=== PATIENT | female | born 1960 | race Caucasian/White ===

== ENCOUNTER 2017-01-22 03:38 | Observation (INO) | payer BC, OTHER ==
[~2017-01-22] VITALS: Ht 162.6 cm; Wt 86.5 kg
[~2017-01-22 03:38] MED LIST: STELARA INJ; VENL150T33 PO; [UNRECOGNIZED DRUG - CODE] PO; [UNRECOGNIZED DRUG - OTHER]
[2017-01-22 04:02] LABS: BASO % 0.2 %; BASO ABS # 0.01 K/uL (0-0.2); COMPLETE YES; EOS % 6.1 %; HEMATOCRIT 38.8 % (37-47); IG% 0.2 %; LYMPH % 29.1 %; LYMPH ABS # 1.63 K/uL (1.2-3.4); MEAN CELL VOLUME 95.1 fL (80-100); MEAN CORPUSCULAR HEMOGLOBIN 31.9 pg (25-34); MEAN CORPUSCULAR HGB CONC 33.5 g/dl (32-36); MEAN PLATELET VOLUME 9.5 fL (7.4-10.4); MONO % 10.3 %; NEUT % 54.1 %; PLATELET COUNT 267 K/uL (130-400); RED BLOOD COUNT 4.08 M/uL (4.2-5.4); WHITE BLOOD COUNT 5.61 K/uL (4.8-10.8)
[2017-01-22 04:12] LABS: ISTAT CREATININE 0.5 mg/dl (0.6-1.3); ISTAT HEMOGLOBIN 13.9 g/dl (12.0-16.0); ISTAT IONIZED CALCIUM 1.13 mmol/l (1.12-1.32)
[2017-01-22 04:18] LABS: POINT OF CARE TROPONIN I < 0.030 ng/ml (0-0.045)
[2017-01-22] MEDS ORDERED: NITROGLYCERIN 0.4 MG SL PER TAB CHARGE SL STA (04:19)
[2017-01-22] MEDS ORDERED: ASPIRIN 81 MG CHEW PO STA ×2 (04:19→04:30)
--- NOTE | 2017-01-22 04:23 | EMERGENCY ROOM VISIT NOTE ---
History First contact with patient: 03:47 Chief Complaint: CARDIAC ASSESSMENT Stated Complaint: CHEST PAIN SINCE SAT, TROUBLE CATCHING BREATH Nursing Triage Summary: patient c/o increased chest pain/discomfort since sunday. patient states it hurts to take a deep breath. patient also states chest is tender to touch . History of Present Illness The patient is a 56 year old female who presents to the Emergency Room with complaints of left sided chest pain that is worse with deep inspiration for the past day that is steadily getting worse currently 9 out of 10. Palpation makes it worse and nothing makes it better. Patient states the pain does not radiate. Patient denies recent travel, back pain, jaw pain, neck pain, arm pain , diaphoresis, nausea, vomiting, diarrhea, abdominal pain, leg pain or swelling. Her mother had heart disease in her 60s. No recent stress test or echo. She had gastric bypass greater than 10 years ago. No alcohol use. She is a former smoker. Patient denies having high blood pressure, cholesterol or diabetes. No personal history of blood clots or heart disease. No family history of blood clots. No known active cancer or hormone replacement. Patient states she takes diltiazem for PVCs. Review of Systems The patient was independently evaluated and assessed by Dr. MCFARLAND who agrees with the above findings and the following plan. Past Medical/Surgical History Medical Problems: (1) Chronic sinusitis, unspecified (2) Deviated Nasal Septum (3) Dyskinesia of esophagus (4) Obstructive sleep apnea (adult) (pediatric) Surgical Problems: (1) H/O gastric bypass PVCs Family History Diabetes mellitus MOTHER FH: Parkinson's disease FATHER Social History Smoking Status: Former Smoker Smokeless Tobacco Use: No Alcohol Use: none Drug Use: none Marital Status: Housing Status: lives with family Occupation Status: employed Current/Historical Medications Scheduled Diltiazem Hcl Coated Beads (Matzim La), 180 MG PO DAILY Venlafaxine Hcl (Venlafaxine Hcl Er), 1 TAB PO DAILY [Stelara], 45 MG INJ EVERY 12 WEEKS Miscellaneous Medications [Lumiday Herbal Sup] Physical Exam Vital Signs Date Time Temp Pulse Resp B/P (MAP) Pulse Ox O2 Delivery O2 Flow Rate FiO2 01/22/17 04:04 98 Room Air 01/22/17 04:04 98 Room Air 01/22/17 03:57 74 01/22/17 03:51 98 Room Air 01/22/17 03:42 36.8 74 20 173/93 96 Room Air Physical Exam VITALS: Vitals are noted on the nurse's note and reviewed by myself. Vital signs hypertensive GENERAL: Pleasant female and she is anxious appearing, in no acute distress, nondiaphoretic, well-developed well-nourished. SKIN: The skin was without rashes, erythema, edema, or bruising. There is no tenting of the skin. Capillary reflex less than 2 seconds. HEAD: Normocephalic atraumatic. EARS: External auditory canals clear, tympanic membranes pearly varghese without erythema or effusion bilaterally. EYES: Pupils equal round and reactive to light and accommodation. Conjunctivae without injection, sclerae without icterus. Extraocular movements intact. NOSE: Patent, turbinates without inflammation or discharge. MOUTH: Mucous membranes moist. Pharynx without erythema or exudate. Uvula midline. Airway patent. Tongue does not deviate. NECK: Supple without nuchal rigidity. No lymphadenopathy. No thyromegaly. Cervical spine is nontender. No JVD. HEART: Regular rate and rhythm left sided chest tender to palpation easily reproducing symptoms LUNGS: Clear to auscultation bilaterally without wheezes, rales or rhonchi. No dullness to percussion. No retractions or accessory muscle use. ABDOMEN: Positive bowel sounds x 4. Normal tympanic percussion. Soft, nontender, without masses or organomegaly. Severino sign negative. No guarding or rebound tenderness. MUSCULOSKELETAL: No muscle atrophy, erythema, or edema noted. NEURO: Patient was alert and oriented to person place and time. Normal sensation to light and sharp touch. No focal neurological deficits. Medical Decision & Procedures Laboratory Results 01/22/17 03:50 Red Blood Count 4.08, Mean Corpuscular Volume 95.1, Mean Corpuscular Hemoglobin 31.9, Mean Corpuscular Hemoglobin Concent 33.5, Mean Platelet Volume 9.5, Neutrophils (%) (Auto) 54.1, Lymphocytes (%) (Auto) 29.1, Monocytes (%) (Auto) 10.3, Eosinophils (%) (Auto) 6.1, Basophils (%) (Auto) 0.2, Neutrophils # (Auto ) 3.04, Lymphocytes # (Auto) 1.63, Monocytes # (Auto) 0.58, Eosinophils # (Auto ) 0.34, Basophils # (Auto) 0.01 Test 01/22/17 03:50 01/22/17 04:00 White Blood Count 5.61 K/uL (4.8-10.8) Red Blood Count 4.08 M/uL (4.2-5.4) Hemoglobin 13.0 g/dL (12.0-16.0) Hematocrit 38.8 % (37-47) Mean Corpuscular Volume 95.1 fL (80-100) Mean Corpuscular Hemoglobin 31.9 pg (25-34) Mean Corpuscular Hemoglobin Concent 33.5 g/dl (32-36) Platelet Count 267 K/uL (130-400) Mean Platelet Volume 9.5 fL (7.4-10.4) Neutrophils (%) (Auto) 54.1 % Lymphocytes (%) (Auto) 29.1 % Monocytes (%) (Auto) 10.3 % Eosinophils (%) (Auto) 6.1 % Basophils (%) (Auto) 0.2 % Neutrophils # (Auto) 3.04 K/uL (1.4-6.5) Lymphocytes # (Auto) 1.63 K/uL (1.2-3.4) Monocytes # (Auto) 0.58 K/uL (0.11-0.59) Eosinophils # (Auto) 0.34 K/uL (0-0.5) Basophils # (Auto) 0.01 K/uL (0-0.2) RDW Standard Deviation 48.4 fL (36.4-46.3) RDW Coefficient of Variation 13.9 % (11.5-14.5) Immature Granulocyte % (Auto) 0.2 % Immature Granulocyte # (Auto) 0.01 K/uL (0.00-0.02) Bedside Hemoglobin 13.9 g/dl (12.0-16.0) Bedside Hematocrit 41 % (37-47) Bedside D-Dimer 173 ng/mlFEU (0-450) Bedside Sodium 142 mEq/L (135-144) Bedside Potassium 3.8 mEq/L (3.3-5.0) Bedside Chloride 103 mEq/L (101-112) Bedside Total CO2 26 mEq/l (24-31) Anion Gap 18.0 mmol/L (16-25) Bedside Blood Urea Nitrogen 10 mg/dl (7-18) Bedside Creatinine 0.5 mg/dl (0.6-1.3) Bedside Glucose (other) 97 mg/dl (70-99) Bedside Ionized Calcium (Gabe) 1.13 mmol/l (1.12-1.32) Bedside Troponin I < 0.030 ng/ml (0-0.045) ED Course Prior records/ancillary studies reviewed. Triage Nursing notes reviewed. The patient's history was concerning for chest pain. Differential diagnosis: Etiologies such as cardiac ischemia, aortic dissection, pulmonary embolism, pneumonia, pneumothorax, musculoskeletal, infections, pericarditis, myocarditis , esophageal rupture, gastrointestinal, as well as others were entertained. Physical examination: As above. ER treatment provided: Aspirin (patient states she took 2 baby aspirin just prior to arrival), Nitro On reassessment the patient felt better. Diagnostic interpretation by me: The electrocardiogram was normal sinus, normal intervals, Q wave in lead 3, T wave inversion in lead 3, no other acute ST-T wave changes, rate of 72. EKG compared to prior EKG from February 2015 with no acute changes noted. Impression normal sinus rhythm with Q wave in lead 3 interpret by myself The labs revealed negative troponin. Negative d-dimer Imaging studies: Chest x-ray with no acute consolidation, pneumothorax or free air per my interpretation Consultation: A consultation was placed with the hospitalist, Dr. Friedman. The case was discussed and diagnostics were reviewed. The patient was evaluated in the ER for further treatment. Exam and history seem consistent with chest pain with family history of heart disease. Patient had unchanged EKG. She has a family history of heart disease. No recent cardiac testing. Patient had a negative d-dimer. No risk factors for PEs. Stable H&H. She will be evaluated by medicine for possible cardiac rule out. By the evaluation outlined above emergent etiologies such as aortic dissection , pulmonary embolism, pneumonia, pneumothorax, infections, pericarditis, myocarditis, gastrointestinal, as well as others were deemed relatively unlikely. The pt informed about the findings as listed above. All questions were answered and pleased with the treatment. Case reviewed with my attending Medical Decision As above Medication Reconcilliation Current Medication List: was personally reviewed by me Blood Pressure Screening Patient's blood pressure: Elevated blood pressure Blood pressure disposition: Elevated BP felt to be situational Impression Primary Impression: Precordial chest pain Departure Information Dispostion Being Evaluated By Hospitalist Condition GOOD Referrals Lian Alonzo M.D. (PCP) Patient Instructions My [facility]
[2017-01-22 04:33] LABS: BUN/CREATININE RATIO 22.6 (10-20); CALCIUM 8.7 mg/dl (8.5-10.1); CREATININE 0.46 mg/dl (0.60-1.20); POTASSIUM 3.7 mmol/L (3.5-5.1)
[2017-01-22] MEDS ORDERED: SECU1INJ INJ (04:34)
[2017-01-22] MEDS ORDERED: DILT180C PO (04:34)
[2017-01-22 04:35] LABS: MAGNESIUM 2.1 mg/dl (1.8-2.4)
[2017-01-22] MEDS ORDERED: MULT-506 PO (04:35)
[2017-01-22 04:48] LABS: PARTIAL THROMBOPLASTIN RATIO 1.1
[2017-01-22] MEDS ORDERED: MoRPHine SULFATE 4 MG/ML 1 ML CARP\\VIAL IV PRN (05:15)
[2017-01-22] MEDS ORDERED: TRAMADOL HCL 50 MG TAB PO PRN (05:15)
[2017-01-22] MEDS ORDERED: IBUPROFEN 200 MG TAB PO PRN (05:15)
[2017-01-22] MEDS ORDERED: LORAZEPAM 2 MG/ML 1 ML VIAL IV PRN (05:15)
[2017-01-22] MEDS ORDERED: ONDANSETRON INJ 2 MG/ML 2 ML VIAL IV PRN (05:15)
[2017-01-22] MEDS ORDERED: ACETAMINOPHEN 325 MG TAB PO PRN (05:15)
[2017-01-22] MEDS ORDERED: KETOROLAC TROMETHAMINE 15 MG/ML VIAL IV. PRN (05:15)
[2017-01-22] MEDS ORDERED: KETOROLAC TROMETHAMINE 30 MG/ML VIAL IV STA (05:16)
[2017-01-22 05:26] VITALS: BP 152/88; PULSE 68; TEMP 36.4; O2SAT 97
[2017-01-22] MEDS ORDERED: IV FLUIDS COMPLETED PRN (05:30)
[2017-01-22] MEDS ORDERED: LACTATED RINGER'S 1000ML 1,000 ML IV SCH (05:30)
[2017-01-22] MEDS ORDERED: KETOROLAC TROMETHAMINE 15 MG/ML VIAL IV. STA (05:35)
[2017-01-22 05:43] VITALS: BP 152/88; TEMP 36.4; O2SAT 97; Ht 162.6 cm; Wt 86.5 kg
--- NOTE | 2017-01-22 06:07 | HISTORY & PHYSICAL EXAMINATION ---
DATE OF ADMISSION: 01/22/2017 PRIMARY CARE PHYSICIAN: Dr. Alonzo. CHIEF COMPLAINT: Chest pain. HISTORY OF PRESENT ILLNESS: History obtained from patient and records. Medical history is significant for PSVT, hypertension, psoriatic arthritis, past tobacco abuse, mild sleep apnea (currently not requiring CPAP). Few days history of left-sided chest pain, pleuritic with some shortness, no cough symptoms. No fever, no chills. No trauma. No unusual exertion except for carrying some pumpkins. Patient sensing some rattling on the left side of the chest. Chest pain, worse with left upper extremity motion. Note of exertional shortness of breath symptoms in the last month. No relief with aspirin and nitroglycerin given at the ER. MEDICAL HISTORY: As above. Stress echo from February 2013 showed no inducible ischemia, EF 64%, trace LV dysfunction, trace MR. SURGERIES: She has had bariatric surgery, hysterectomy, appendectomy, oophorectomy, cholecystectomy, rhinoplasty, right inguinal node biopsy. HOME MEDICATIONS: Include diltiazem, cholecalciferol, Cosentyx, clobetasol, calcipotriene, multivitamins, Caltrate. ALLERGIES: No known drug allergies. FAMILY HISTORY: Family history of heart disease. PERSONAL AND SOCIAL HISTORY: Past tobacco abuse. Occasional alcoholic beverage intake. Retired longterm counselor. REVIEW OF SYSTEMS: As per HPI, all other ROS negative. PHYSICAL EXAMINATION: VITAL SIGNS: Blood pressure was noted to be 170/90, later 131/90, RR 22 T 37, O2 sats 98 on room air. GENERAL: Slightly anxious, no respiratory distress, obese. SKIN: Normal color, warm. HEENT: [place] palpebral conjuctivae. no ptosis, dry buccal mucosa. NECK: Supple. No tenderness. CHEST: Clear to auscultation. Anterior chest wall tenderness , L. CARDIOVASCULAR: Regular rate and rhythm. Palpable lower extremity pulses. ABDOMEN: Soft, nontender. EXTREMITIES: No edema, no tenderness. No gross deformity. NEUROLOGIC: Coherent. No gross focality. LABORATORY DATA: Hemoglobin was noted to be 13, hematocrit 38.8, white blood cell count 5.6, platelets noted to be 267. Sodium 141, potassium 3.7, chloride 106, CO2 27, BUN 11, creatinine 0.4, glucose was noted to be 94. Troponin 0.03. D-dimer normal. Chest x-ray as per my interpretation atelectasis. EKG as per my interpretation, rate 75, normal sinus rhythm, nonspecific T-wave abnormalities in the inferior leads, PRWP. ASSESSMENT: 1. Atypical chest pain likely musculoskeletal ddx : pericarditis, acute coronary syndrome. 2. Hypertension, stable. 3. hx PSVT as per records 4. Psoriatic arthritis, stable 5. Past tobacco abuse. 6. Exertional shortness of breath symptoms for 1 month rule out chronic obstructive pulmonary disease. PLAN: Observation PCU. check ESR, Follow cardiac markers, TTE RE cp NSAID trial for chest pain. ASA for CAD prevention until ACS ruled out Cardiology consult RE chest pain (Px known to Dr. Bernard.) Further eval and management of chest pain as per Cardiology Outpatient PFTs. DVT prophylaxis Lovenox subcutaneous. Full code. MTDD
--- NOTE | 2017-01-22 06:50 | DIAGNOSTIC IMAGING REPORT ---
CHEST ONE VIEW PORTABLE HISTORY: 56 years-old Female CHEST PAIN acute atypical chest pain COMPARISON: Chest radiograph 03/24/2015 TECHNIQUE: Portable upright AP view of the chest FINDINGS: Cardiomediastinal and hilar silhouettes are within normal limits. Mild pulmonary vascular congestion. No pneumothorax, pleural effusion, focal airspace consolidation or overt pulmonary edema. Bones of the chest are grossly intact. IMPRESSION: No acute cardiopulmonary process. The above report was generated using voice recognition software. It may contain grammatical, syntax or spelling errors. Electronically signed by: Gustavo Herbert M.D. 01/22/2017 6:49 AM Dictated Date/Time: 01/22/2017 6:48 AM
[2017-01-22 07:36] VITALS: BP 144/82; PULSE 75; TEMP 36.7; O2SAT 94
[2017-01-22] MEDS ORDERED: INFLUENZA ADMINISTRATION CHARGE ONE (08:00)
[2017-01-22] MEDS ORDERED: INFLUENZA VIRUS QUAD VACCINE 0.5 ML SYR IM. ONE (08:00)
[2017-01-22 08:04] LABS: PROTHROMBIN TIME (PATIENT) 10.3 SECONDS (9.0-12.0)
[2017-01-22 08:18] LABS: CHOLESTEROL 187 mg/dl (0-200); CHOLESTEROL/HDL RATIO 1.8; HDL CHOLESTEROL 103 mg/dl; LDL CHOLESTEROL CALCULATED 73 mg/dl; TRIGLYCERIDES 55 mg/dl (0-150); VERY LOW DENSITY LIPOPROT CALC 11 mg/dl
[2017-01-22] MEDS ORDERED: DILTIAZEM HCL 180 MG CAPCR PO SCH (09:00)
[2017-01-22] MEDS: ENOXAPARIN 40 MG/0.4 ML SYR SC SCH ×2 (09:00→14:52)
[2017-01-22] MEDS ORDERED: MULTIVITAMIN TAB PO SCH (09:00)
--- NOTE | 2017-01-22 10:37 | CARDIOLOGY CONSULTATION ---
DATE OF CONSULTATION: 01/22/2017 REFERRING PHYSICIAN: Dr. Clarence Friedman. REASON FOR CONSULTATION: Chest pain. HISTORY OF PRESENT ILLNESS: Ms. Sinha is a 56-year-old female, who developed chest and abdominal discomfort on Sunday afternoon. Symptoms were slowly progressive to the left side of her chest. On Sunday evening, she noted a fullness on her left upper chest. The symptoms seemed to progress throughout the day on Sunday. She attempted to ignore these symptoms, which were worse with cough and inspiration. In the evening of 01/21/2017, she was unable to be comfortable and became unnerved by her symptoms. She came to the Emergency Department for further evaluation and treatment. Initial troponins are negative. No ischemic changes on ECG. There have been no dysrhythmias on telemetry. She notes some occasional palpitations, which have become more frequent over the past 48 hours associated with her chest discomfort. Notes chills this morning. Dry cough also reported. No objective fevers. No sick contacts. No nausea, vomiting, or diarrhea. The patient received a dose of intravenous Toradol this morning. Her symptoms have improved significantly. She is now able to take a deep breath. Pain only present on inspiration at this time. REVIEW OF SYSTEMS: The pertinent positive noted above, a comprehensive 10-system review is otherwise negative. PAST MEDICAL HISTORY: 1. Paroxysmal supraventricular tachycardia. 2. Palpitations. 3. Sleep apnea. 4. Anxiety disorder. 5. Psoriatic arthropathy. 6. Psoriasis. PAST SURGICAL HISTORY: 1. Bariatric surgery. 2. Hysterectomy. 3. Appendectomy. 4. Oophorectomy. 5. Cholecystectomy. 6. Rhinoplasty. 7. Inguinal node biopsy. SOCIAL HISTORY: Former tobacco abuse with a [id number] history, quit in 2002. She is and lives with her family. FAMILY HISTORY: Negative for premature CAD or sudden cardiac . ALLERGIES: No known drug allergies. CURRENT OUTPATIENT MEDICATIONS: 1. Cardizem 180 mg daily. 2. Calcium with vitamin D daily. 3. Vitamin C daily. EKG on admission: Sinus rhythm, poor R-wave progression, nonspecific T-wave abnormality. Resting 2D transthoracic echo is pending. Cardiac enzymes negative x2 sets. Sodium 142, potassium 3.8, chloride 103, CO2 is 26, BUN is 11, and creatinine is 0.5. White blood cell count 5.61, hemoglobin is 13.9, and platelet count is 267. INR is 1.0. Telemetry demonstrates sinus rhythm. PHYSICAL EXAMINATION: VITAL SIGNS: Temperature is 36.7 degrees centigrade, pulse 75 beats per minute and regular, respiratory rate is 15 breaths per minute, blood pressure 144/82 and SaO2 is 94% on room air. GENERAL: NAD, awake, alert, and oriented x3. HEENT: Mucous membranes are moist. No scleral icterus. Conjunctivae pink. NECK: Supple without JVD, no HJR, and no carotid bruit. HEART: Regular with a normal S1 and S2. There is no murmur, rub, or gallop. LUNGS: Clear without rales, rhonchi or wheeze. ABDOMEN: Soft and nontender. No rebound or guarding. Normal bowel sounds. EXTREMITIES: Warm and dry without clubbing, cyanosis, or edema. NEUROLOGIC: Demonstrates no focal deficit. FINAL IMPRESSION: 1. A 56-year-old female admitted with atypical pleuritic chest discomfort, I suspect secondary to mild pleurisy and/or component of pericarditis. 2. Paroxysmal supraventricular tachycardia -- remains in sinus rhythm. 3. Hypertension -- stable. 4. Psoriatic arthritis. 5. Former tobacco use. PLAN AND RECOMMENDATIONS: The patient's symptoms have significantly improved with NSAIDs. Resting 2D transthoracic echo will be reviewed to exclude the presence of pericardial effusion. Her cardiac enzymes are negative despite more than 24 hours of intermittent pleuritic chest discomfort. D-dimer is negative, which denotes a low probability of pulmonary embolus and thrombosis at this time. If echocardiogram is unremarkable, would recommend treatment with anti-inflammatories, NSAIDs for 5-10 days. Consider outpatient stress testing for further risk stratification. We will continue to follow during hospitalization. Thank you for allowing me to take part in the care of your patient.
--- NOTE | 2017-01-22 10:40 | ECHOCARDIOGRAM REPORT ---
*NOTICE TO RECEIVING CONSTITUTION PARTY AGENCY This information is strictly Confidential and protected under [place] law. [place] law prohibits you from making any further disclosure of this information unless further disclosure is expressly permitted by the written consent of the person to whom it pertains or is authorized by law. A general authorization for the release of medical or other information is not sufficient for this purpose. Hospital accepts no responsibility if the information is made available to any other person, INCLUDING THE PATIENT. Interpretation Summary * Name: DARINEL GREEN Study Date: 01/22/2017 06:25 AM BP: 152/88 mmHg * Patient Location: .2T\S\E222\S\1 HR: 71 * : 1960 (M/d/yyyy) Gender: Female Height: 64 in * Age: 56 yrs Ethnicity: CA Weight: 191 lb * Ordering Physician: Clarence Friedman * Referring Physician: Self, Referred * Performed By: Laina Jacques RCS * * Reason For Study: Chest Pain * BSA: 1.9 m2 * The study was technically adequate. * There is no comparison study available. * -- Conclusions -- * Ejection Fraction = 60-65%. * The left ventricular wall motion is normal. * There is no pericardial effusion. * There is trace mitral regurgitation. Procedure Details * A complete two-dimensional transthoracic echocardiogram was performed (2D, M-mode, Doppler and color flow Doppler). Left Ventricle * The left ventricle is normal in size. * There is normal left ventricular wall thickness. * Ejection Fraction = 60-65%. * Left ventricular systolic function is normal. * The left ventricular wall motion is normal. Right Ventricle * The right ventricle is normal size. * The right ventricular systolic function is normal as assessed by tricuspid annular plane systolic excursion (TAPSE) (normal >1.5 cm). Atria * The left atrial size is normal. * Right atrial size is normal. * There is no evidence of atrial septal defect, but resolution does not allow assessment for a patent foramen ovale. Mitral Valve * The mitral valve is normal. * There is no mitral valve stenosis. * There is trace mitral regurgitation. Tricuspid Valve * The tricuspid valve is normal. * There is no tricuspid stenosis. * Significant tricuspid regurgitation is absent. Aortic Valve * The aortic valve is trileaflet. * Aortic stenosis is absent. * There is no significant aortic regurgitation. Pulmonic Valve * The pulmonary valve is not well seen, but the Doppler examination is normal without significant regurgitation or stenosis. Great Vessels * The aortic root and proximal ascending aorta are normal sized. Pericardium/Pleural * There is no pericardial effusion. Great Vessels * Normal inferior vena cava diameter and respiratory variation suggests normal central venous pressure. MMode 2D Measurements and Calculations IVSd 1.0 cm IVSs 1.3 cm LVIDd 5.2 cm LVIDs 3.4 cm LVPWd 0.88 cm LVPWs 1.3 cm IVS/LVPW 1.2 FS 33.8 % EDV(Teich) 128.2 ml ESV(Teich) 48.3 ml EF(Teich) 62.3 % EDV(cubed) 138.7 ml ESV(cubed) 40.2 ml EF(cubed) 71.0 % % IVS thick 27.0 % % LVPW thick 50.1 % LV mass(C)d 179.8 grams LV mass(C)dI 93.7 grams/m\S\2 LV mass(C)s 150.5 grams LV mass(C)sI 78.5 grams/m\S\2 SV(Teich) 79.9 ml SI(Teich) 41.6 ml/m\S\2 SV(cubed) 98.5 ml SI(cubed) 51.4 ml/m\S\2 Ao root diam 3.2 cm Ao root area 8.0 cm\S\2 ACS 1.4 cm LA dimension 4.7 cm asc Aorta Diam 3.0 cm LA/Ao 1.5 EDV(MOD-sp4) 109.0 ml ESV(MOD-sp4) 46.0 ml EF(MOD-sp4) 57.8 % EDV(MOD-sp2) 90.0 ml ESV(MOD-sp2) 34.0 ml EF(MOD-sp2) 62.2 % SV(MOD-sp4) 63.0 ml SI(MOD-sp4) 32.8 ml/m\S\2 SV(MOD-sp2) 56.0 ml SI(MOD-sp2) 29.2 ml/m\S\2 Doppler Measurements and Calculations MV E max yoshi 106.7 cm/sec MV A max yoshi 116.1 cm/sec MV E/A 0.92 MV P1/2t max yoshi 119.2 cm/sec MV P1/2t 83.6 msec MVA(P1/2t) 2.6 cm\S\2 MV dec slope 417.4 cm/sec\S\2 MV dec time 0.24 sec Ao V2 max 188.7 cm/sec Ao max PG 14.2 mmHg Ao max PG (full) 8.9 mmHg LV V1 max PG 5.4 mmHg LV V1 max 116.0 cm/sec PA V2 max 135.9 cm/sec PA max PG 7.4 mmHg TR max yoshi 209.7 cm/sec
[2017-01-22 11:12] VITALS: BP 134/82; PULSE 78; TEMP 36.5; O2SAT 96
[2017-01-22] MEDS ORDERED: IBUPROFEN 800 MG TAB PO ONE (14:30)
[2017-01-22 15:30] VITALS: BP 125/83; PULSE 67; TEMP 36.8; O2SAT 96
[2017-01-22] MEDS ORDERED: MTR800 PO (15:46)
--- NOTE | 2017-01-22 15:55 | Discharge Instructions ---
Discharge Instructions Date of Service Jan 22, 2017. Admission Reason for Admission: chest pain . Discharge Discharge Diagnosis / Problem: chest pain Discharge Goals Goal(s): Decrease discomfort, Improve disease control Activity Recommendations Activity Limitations: resume your previous activity . Instructions / Follow-Up Instructions / Follow-Up APPOINTMENTS: INTERNAL MEDICINE 01/26/2017 11:00 AM Lian Alonzo MD [facility] CARDIOLOGY Dr. Jamaal Bernard kenna [facility] Office will contact you with appointment. OTHER INSTRUCTIONS: No sign of heart attack. Looks like you have pericarditis- inflammation around the heart. Take ibuprofen 800 mg with food as directed to treat inflammation: first 4 days- 3 times a day with meals next 4 days- twice a day with breakfast and supper; may take 1 additional dose if needed next 4 days- once a day with breakfast; may take 2 additional doses if needed then... up to 3 times a day as needed Seek medical attention if you have: * temperature above 101 * chest pain or trouble breathing * abdominal pain, nausea, vomiting * diarrhea, dark stools or bloody stools * any unanswered questions or concerns Call 911 if symptoms are severe. Call if you have any questions or problems. My cell # is [phone]. You can also reach a [facility] hospitalist on duty at [facility] 24 hours a day by calling [phone]. Please take good care of yourself. Christian Varghese . Current Hospital Diet Patient's current hospital diet: AHA Diet (Heart Healthy) Discharge Diet Recommended Diet: AHA Diet (Heart Healthy) Pending Studies Studies pending at discharge: no Laboratory Results Lipid Panel Test 01/22/17 07:36 Range/Units Triglycerides Level 55 0-150 mg/dl Cholesterol Level 187 0-200 mg/dl HDL Cholesterol 103 mg/dl Cholesterol/HDL Ratio 1.8 LDL Cholesterol, Calculated 73 mg/dl Medical Emergencies . Who to Call and When: Medical Emergencies: If at any time you feel your situation is an emergency, please call 911 immediately. . Non-Emergent Contact Non-Emergency issues call your: Primary Care Provider, Student Teacher, Hospital Doctor . . "Provider Documentation" section prepared by Christian Varghese. . VTE Core Measure Inpt VTE Proph given/why not?: Enoxaparin (Lovenox)SQ
[2017-01-22 16:03] VITALS: BP 125/83; PULSE 67; TEMP 36.8; O2SAT 96
[2017-01-22] MEDS ORDERED: IBUPROFEN 800 MG TAB PO SCH (21:00)
[2017-01-23] MEDS ORDERED: ASPIRIN 325 MG ECTAB PO SCH (09:00)
--- NOTE | 2017-01-23 13:32 | Progress Note ---
Medicine Progress Note Date & Time of Visit: Jan 22, 2017 at ~ 16:00 (late entry) . Subjective Chest pain improved after receiving IV ketorolac. No SOB. . Objective Vital Signs Label Value Date Time Patient Temperature 36.8 C. 01/22/170 Temperature Source Oral 01/22/171529 Pulse 67 01/22/17 1530 Location Right Radial Respiratory Rate 16 01/22/17 153 Blood Pressure Assessment 125/83 (97) 01/22/17 153 Location Right Arm Source NIBP Position Sitting Bedside Pulse Oximetry 96 % 01/22/171529 Item Value Date Time Oxygen Delivery Method Room Air 01/22/171529 Physical Exam: General- no distress Neck- no JVD Lungs- clear Heart- RRR, I/ sys murmur @ base, no rub appreciated Abdomen- + BS, soft, nontender Extremities- no pretibial edema or calf tenderness Neuro- alert . Laboratory Results: Last 24 Hours Test 01/22/17 14:23 Troponin I < 0.015 ng/ml Assessment & Plan CHEST PAIN Cardiology consulted. Troponins neg x 3. EKGs did not show any acute changes. Echo showed normal LV wall motion and function, no pericardial effusion. D-dimer normal, so pulmonary embolism very unlikely. [place] that patient most likely had pleurisy + / - pericarditis. Course of ibuprofen recommended. Outpatient stress testing recommended. HISTORY PSVT Continue diltiazem. HEPATITIS C SCREENING Antibody screen negative. VTE PROPHYLAXIS SQ enoxaparin. Ambulating. DISPOSITION Expected discharge to home. Internal Medicine follow-up with Dr. Lian Alonzo. Cardiology follow-up with Dr. Jamaal Bernard. .
--- NOTE | 2017-01-23 13:56 | Discharge Summary ---
Discharge Summary Date of Service Jan 23, 2017. Discharge Summary Admission Date: Jan 22, 2017 at 04:47 Discharge Date: Jan 22, 2017 Discharge Disposition: Home Principal Diagnosis: chest pain- pleurisy and / or pericarditis . Secondary Diagnoses/Problems: Chronic and Resolved Medical Problems: (1) Chronic sinusitis, unspecified Status: Chronic (2) Deviated Nasal Septum Status: Resolved (3) Esophageal dysmotility Permanent Comment: UGI 06/10/13 Status: Chronic (4) History of PSVT (paroxysmal supraventricular tachycardia) Status: Chronic (5) Hypertension Status: Chronic (6) Psoriasis Status: Chronic (7) Psoriatic arthritis Status: Chronic (8) Sleep apnea Status: Chronic Surgical Problems: (1) Status post appendectomy Status: Chronic (2) Status post bariatric surgery Status: Chronic (3) Status post cholecystectomy Status: Chronic (4) Status post hysterectomy Status: Chronic (5) Status post oophorectomy Status: Chronic (6) Status post rhinoplasty Status: Chronic (7) Status post right inguinal lymph node biopsy Status: Chronic . Procedures: cardiac monitoring echocardiogram . Medication Reconciliation New Medications: Ibuprofen (Ibuprofen) 800 Mg Tab 800 MG PO UD, #50 TAB Take with food. Taper as instructed. Continued Medications: Diltiazem Hcl Coated Beads (Diltiazem Hcl Er) 180 Mg Cap 180 MG PO DAILY Multivitamin (Multivitamin) Tab 1 TAB PO DAILY, TAB Secukinumab (Cosentyx) 150 Mg/Ml Inj 1 DOSE INJ MONTHLY Admission Information HPI (per Admitting provider): History obtained from patient and records. Medical history is significant for PSVT, hypertension, psoriatic arthritis, past tobacco abuse, mild sleep apnea (currently not requiring CPAP). Few days history of left-sided chest pain, pleuritic with some shortness, no cough symptoms. No fever, no chills. No trauma. No unusual exertion except for carrying some pumpkins. Patient sensing some rattling on the left side of the chest. Chest pain, worse with left upper extremity motion. Note of exertional shortness of breath symptoms in the last month. No relief with aspirin and nitroglycerin given at the ER. . Physical Exam (per Admitting): VITAL SIGNS: Blood pressure was noted to be 170/90, later 131/90, RR 22 T 37, O2 sats 98 on room air. GENERAL: Slightly anxious, no respiratory distress, obese. SKIN: Normal color, warm. HEENT: [place] palpebral conjuctivae. no ptosis, dry buccal mucosa. NECK: Supple. No tenderness. CHEST: Clear to auscultation. Anterior chest wall tenderness , L. CARDIOVASCULAR: Regular rate and rhythm. Palpable lower extremity pulses. ABDOMEN: Soft, nontender. EXTREMITIES: No edema, no tenderness. No gross deformity. NEUROLOGIC: Coherent. No gross focality. . Hospital Course CHEST PAIN Presented with few day history of left sided pleuritic chest pain with some dyspnea. Cardiology consulted. Troponins neg x 3. EKGs did not show any acute changes. Echo showed normal LV wall motion and function, no pericardial effusion. D-dimer normal, so pulmonary embolism very unlikely. CP improved after receiving IV ketorolac. [place] that patient most likely had pleurisy + / - pericarditis. Course of ibuprofen recommended. Outpatient stress testing recommended. HYPERTENSION Continue diltiazem. HISTORY PSVT Continue diltiazem. HEPATITIS C SCREENING Antibody screen negative. VTE PROPHYLAXIS SQ enoxaparin. Ambulating. DISPOSITION Expected discharge to home. Internal Medicine follow-up with Dr. Lian Alonzo. Cardiology follow-up with Dr. Jamaal Bernard. . Discharge Instructions Date of Service Jan 22, 2017. Admission Reason for Admission: chest pain . Discharge Discharge Diagnosis / Problem: chest pain Discharge Goals Goal(s): Decrease discomfort, Improve disease control Activity Recommendations Activity Limitations: resume your previous activity . Instructions / Follow-Up Instructions / Follow-Up APPOINTMENTS: INTERNAL MEDICINE 01/26/2017 11:00 AM Lian Alonzo MD [facility] CARDIOLOGY Dr. Jamaal Bernard [facility] Office will contact you with appointment. OTHER INSTRUCTIONS: No sign of heart attack. Looks like you have pericarditis- inflammation around the heart. Take ibuprofen 800 mg with food as directed to treat inflammation: first 4 days- 3 times a day with meals next 4 days- twice a day with breakfast and supper; may take 1 additional dose if needed next 4 days- once a day with breakfast; may take 2 additional doses if needed then... up to 3 times a day as needed Seek medical attention if you have: * temperature above 101 * chest pain or trouble breathing * abdominal pain, nausea, vomiting * diarrhea, dark stools or bloody stools * any unanswered questions or concerns Call 911 if symptoms are severe. Call if you have any questions or problems. My cell # is [phone]. You can also reach a [facility] hospitalist on duty at [facility] 24 hours a day by calling [phone]. Please take good care of yourself. Christian Varghese . Current Hospital Diet Patient's current hospital diet: AHA Diet (Heart Healthy) Discharge Diet Recommended Diet: AHA Diet (Heart Healthy) Pending Studies Studies pending at discharge: no Laboratory Results Lipid Panel Test 01/22/17 07:36 Range/Units Triglycerides Level 55 0-150 mg/dl Cholesterol Level 187 0-200 mg/dl HDL Cholesterol 103 mg/dl Cholesterol/HDL Ratio 1.8 LDL Cholesterol, Calculated 73 mg/dl Medical Emergencies . Who to Call and When: Medical Emergencies: If at any time you feel your situation is an emergency, please call 911 immediately. . Non-Emergent Contact Non-Emergency issues call your: Primary Care Provider, Outsole Rounder, Hospital Doctor . . "Provider Documentation" section prepared by Christian Varghese. . VTE Core Measure Inpt VTE Proph given/why not?: Enoxaparin (Lovenox)SQ .
== END 2017-01-22 16:35 | disposition home or self-care (01) ==
LOC: C.EDB 03:39 → C.2T 04:47 → ENRESERV 04:54
PROVIDERS: ADMIT Internal Medicine; ATTEND Hospitalist
DX: R07.9 Chest pain, unspecified (principal); G47.33 Obstructive sleep apnea (adult) (pediatric); I10 Essential (primary) hypertension; I47.2 Ventricular tachycardia; K22.4 Dyskinesia of esophagus; Z98.84 Bariatric surgery status; Z87.891 Personal history of nicotine dependence; Z79.899 Other long term (current) drug therapy; J32.9 Chronic sinusitis, unspecified; L40.50 Arthropathic psoriasis, unspecified

== ENCOUNTER 2017-04-11 06:22 | Day surgery (SDC) | payer OTHER ==
[2017-04-05 09:26] VITALS: Ht 162.6 cm; Wt 87.3 kg
--- NOTE | 2017-04-05 09:57 | PAT Medication Instructions ---
Service Date Apr 05, 2017. Current Home Medication List Acetaminophen Tab (Tylenol), 325 MG PO PRN Calcipotriene (Calcipotriene), 1 DOSE TOP BID Diltiazem Hcl Coated Beads (Diltiazem Hcl Er), 180 MG PO QAM Multivitamin (Multivitamin), 2 TAB PO QAM Naproxen (Aleve), 220 MG PO PRN Ocuvite Preservision (Ocuvite Preservision), 1 TAB PO QAM Secukinumab (Cosentyx), 1 DOSE INJ MONTHLY Medication Instructions For Your Scheduled Surgery - Check with surgeon for instructions: Naproxen (Aleve), 220 MG PO PRN Secukinumab (Cosentyx), 1 DOSE INJ MONTHLY (continue as directed) - Hold the following medications 24 hours prior to surgery: Calcipotriene (Calcipotriene), 1 DOSE TOP BID - Hold the following medications the morning of surgery: Multivitamin (Multivitamin), 2 TAB PO QAM Ocuvite Preservision (Ocuvite Preservision), 1 TAB PO QAM - Take the following medications the morning of surgery with a sip of water: Diltiazem Hcl Coated Beads (Diltiazem Hcl Er), 180 MG PO QAM Acetaminophen Tab (Tylenol), 325 MG PO PRN (okay to take up to 4 hours prior to surgery if needed) - Take the following medications as scheduled the night before surgery: Acetaminophen Tab (Tylenol), 325 MG PO PRN (if needed) If you have any questions please call us at [phone] or [phone] or [phone]
[~2017-04-11] VITALS: Ht 162.6 cm; Wt 87.3 kg
[~2017-04-11 06:22] MED LIST changes: +ACET325T96 PO; +CALC1CRE2 TOP; +CEFAZOLIN 2000MG IV PUSH 10 ML IV SCH; +DILT180C PO; +LACTATED RINGER'S 1000ML 1,000 ML IV SCH; +MULT-190 PO; +MULT-506 PO; +NAPR1TAB9 PO; +SECU1INJ INJ; -STELARA INJ; -VENL150T33 PO; -[UNRECOGNIZED DRUG - CODE] PO; -[UNRECOGNIZED DRUG - OTHER]
[2017-04-11 06:51] VITALS: BP 116/69; PULSE 70; TEMP 36.8; O2SAT 98
--- NOTE | 2017-04-11 07:58 | History & Physical Bridge Note ---
H&P Re-Evaluation Bridge Note: I have examined the patient, reviewed the History & Physical and in the interval since the performance of the History & Physical I have noted the following changes of clinical significance: No changes noted
[2017-04-11] MEDS ORDERED: LIDO 2%/EPINEPHRINE 1:100000 20 ML VIAL INFIL ONE (08:24)
[2017-04-11] MEDS ORDERED: ONDANSETRON INJ 2 MG/ML 2 ML VIAL ONE (08:26)
[2017-04-11] MEDS ORDERED: FENTANYL CITRATE INJ 50 MCG/1 ML 2 ML VIAL ONE ×2 (08:26)
[2017-04-11] MEDS ORDERED: LIDOCAINE HCL 2% 2 ML VIAL (20MG/ML) ONE (08:26)
[2017-04-11] MEDS ORDERED: PROPOFOL IV EMULSION 10 MG/ML 20 ML VIAL IV ONE ×3 (08:26→11:27)
[2017-04-11] MEDS ORDERED: MIDAZOLAM HCL 1 MG/ML 2ML VIAL ONE (08:26)
[2017-04-11] MEDS ORDERED: SUCCINYLCHOLINE CHLORIDE 20 MG/ML 10 ML VIAL IV ONE (08:26)
[2017-04-11] MEDS ORDERED: THROMBIN 5000 UNITS KIT ONE (09:12)
[2017-04-11] MEDS ORDERED: FENTANYL CITRATE INJ 50 MCG/1 ML 2 ML VIAL IV PRN (09:15)
[2017-04-11] MEDS ORDERED: ONDANSETRON INJ 2 MG/ML 2 ML VIAL IV PRN ×2 (09:15→11:00)
[2017-04-11] MEDS ORDERED: ATROPINE SULFATE 0.1 MG/ML 5ML SYR IV PRN (09:15)
[2017-04-11] MEDS ORDERED: HYDROmorphone INJ 0.5 MG/0.5 ML SYR IV PRN (09:15)
[2017-04-11] MEDS ORDERED: EpHEDrine SULFATE INJ 50 MG/ML AMP IV PRN (09:15)
[2017-04-11] MEDS ORDERED: LABETALOL HCL IV 5 MG/ML 20ML IV ONE (10:16)
[2017-04-11] MEDS ORDERED: SURGICEL ABSORB HEMOSTAT 2IN X 14IN TOP ONE (10:35)
[2017-04-11] MEDS ORDERED: BACITRACIN OINT 15 GM TUBE ONE (10:38)
--- NOTE | 2017-04-11 10:46 | [facility] Operative Report ---
Operative Report Operative Date Apr 11, 2017. Pre-Operative Diagnosis Sialolithiasis of Submandibular Gland, Sialoadenitis Post-Operative Diagnosis Sialolithiasis of Submandibular Gland, Sialoadenitis Procedure(s) Performed Removal of Right Submandibular Gland Surgeon Dr. Cody Bowen Information Writer Surgeon(s) Libia Harvey PA-c Estimated Blood Loss 15ML Findings SEVERELY INFLAMED RIGHT SUBMANDIBULAR GLAND WITH LARGE ~1.5CM STONE AT JUNCTION OF GLAND AND SUBMANDIBULAR DUCT. Specimens Permanent Specimen A: Right Submandibular Gland and contents I attest to the content of the Intraoperative Record and any orders documented therein. Any exceptions are noted below.
--- NOTE | 2017-04-11 10:48 | Discharge Instructions ---
Discharge Instructions Date of Service Apr 11, 2017. Admission Reason for Admission: Sialoadenitis, Sialolithiasis Of Submandibular Gla Discharge Discharge Diagnosis / Problem: SAME Discharge Goals Goal(s): Therapeutic intervention Activity Recommendations Activity Limitations: as noted below LIGHT ACTIVITY FOR 2 WEEKS; NO DRIVING WHILE ON NORCO . Current Hospital Diet Patient's current hospital diet: Regular Diet Discharge Diet Recommended Diet: Regular Diet Procedures Procedures Performed: Removal of Right Submandibular Gland Pending Studies Studies pending at discharge: no Laboratory Results Lipid Panel Test 01/22/17 07:36 Range/Units Triglycerides Level 55 0-150 mg/dl Cholesterol Level 187 0-200 mg/dl HDL Cholesterol 103 mg/dl Cholesterol/HDL Ratio 1.8 LDL Cholesterol, Calculated 73 mg/dl Medical Emergencies . Who to Call and When: Medical Emergencies: If at any time you feel your situation is an emergency, please call 911 immediately. . Non-Emergent Contact Non-Emergency issues call your: Surgeon . . "Provider Documentation" section prepared by Cody Bowen. . VTE Core Measure Inpt VTE Proph given/why not?: SCD's
[2017-04-11] MEDS ORDERED: HYDROCODONE/ACETAMOPHEN 5/325MG TAB PO PRN ×2 (11:00)
--- NOTE | 2017-04-11 11:36 | OPERATIVE REPORT ---
DATE OF OPERATION: 04/11/2017 PREOPERATIVE DIAGNOSES: 1. Right submandibular gland sialoadenitis. 2. Right submandibular gland, sialolithiasis. POSTOPERATIVE DIAGNOSES: 1. Right submandibular gland sialoadenitis. 2. Right submandibular gland, sialolithiasis. PROCEDURE: Excisional biopsy of right submandibular gland. SURGEON: Dr. Cody Bowen. CERAMIC SPRAYER: Libia Harvey PA-C. ANESTHESIA: General endotracheal. ESTIMATED BLOOD LOSS: 15 mL. FINDINGS: 1. Severely inflamed right submandibular gland with a large approximately 1.5-cm stone at the junction of the gland and the submandibular duct. 2. Severe amount of inflammation with inflammatory rind making identification of adjacent structures difficult. SPECIMENS: Right submandibular gland for permanent pathological assessment. DRAINS: None. COMPLICATIONS: None. INDICATIONS FOR THE PROCEDURE: The patient is a very pleasant 56-year-old female, who presented with severe right neck swelling and pain and had a CT scan of the neck, which showed severe right submandibular gland sialoadenitis with a large stone at the junction of the gland and the submandibular duct. She was placed on antibiotics and her infection cleared, but she continues to have problems with intermittent swelling of her right submandibular gland with eating. Options including sialoendoscopy versus right submandibular gland excision were discussed with the patient and she opted for the latter. She presents for the above-mentioned procedure in an outpatient elective basis. DESCRIPTION OF PROCEDURE: After informed consent had been obtained from the patient, the patient was wheeled to the operating room and placed on the operating table in the supine position. Monitors were placed. After induction of general endotracheal anesthesia, the patient's head was gently turned to the left and the head and neck were gently extended. A marking pen was used to outline the planned 4-cm incision in a natural skin crease 2 fingerbreadths below the level of the angle of the mandible and inferior border of the mandible. 3 mL of 1% lidocaine with 1:100,000 epinephrine were used to inject the skin and subcutaneous tissues overlying the planned incision site. The skin in the neck and chest were then prepped and draped in usual sterile fashion. #15 scalpel was then used to make an incision through the skin, subcutaneous tissue, and platysma. Subplatysmal flaps were raised superiorly and inferiorly. Immediately, the right marginal mandibular nerve was identified overlying the submandibular gland. Dissection was carried to dissect the nerve free from the gland. The branch of the external jugular vein was divided and the soft tissues were retracted superiorly including the marginal mandibular nerve away from the gland. Of note, the submandibular gland was enlarged and severely inflamed. Dissection was carried down to the submandibular gland capsule and using the Harmonic scalpel and blunt and sharp dissection, the submandibular gland was freed from the surrounding attachments to the mylohyoid muscle, the region of the digastric muscle, and the fibrofatty tissue around the periphery of the gland. In the posterior aspect of the gland, the branches of the facial artery and posterior facial vein were divided using Harmonic scalpel. The mylohyoid muscle was retracted medially. Care was taken to identify the submandibular duct as well as the hypoglossal and lingual nerves. Of note, there was a large stone at the junction of the gland and the submandibular duct. The submandibular duct was divided using the Harmonic scalpel, which adjacent to the submandibular gland capsule and the specimen was delivered from the neck and sent off for permanent pathological assessment. The wound was then copiously irrigated and suctioned. Bipolar electrocautery was used to achieve adequate hemostasis. Small pieces of Surgicel followed by topical spray thrombin were then placed into the right neck. The platysma was then closed with several deep 3-0 Vicryl sutures. The subcutaneous tissues were reapproximated using several deep 4-0 Monocryl sutures. The skin was then closed with a simple running subcuticular Monocryl suture. The incision was cleansed and dried. Dermabond was applied to the incision. A nerve integrity monitor electrodes that were previously placed over the orbicularis prudencio and mentalis musculature area were then removed and antibiotic ointment applied to the electrode insertion sites. This marked the end of the case. The patient tolerated the procedure well. There were no apparent complications. Of note, Libia Harvey assisted on the entire procedure, but then performed the skin closure. I attest to the content of the Intraoperative Record and any orders documented therein. Any exception s are noted below.
--- NOTE | 2017-04-11 12:05 | Anesthesiology Progress Note ---
Anesthesia Post Op Note Date & Time Apr 11, 2017 at 12:05 Vital Signs Pain Intensity: 3 Vital Signs Past 12 Hours Date Time Temp Pulse Resp B/P (MAP) Pulse Ox O2 Delivery O2 Flow Rate FiO2 04/11/17 12:00 37.0 73 12 119/74 94 Room Air 04/11/17 11:50 85 20 121/75 95 Room Air 04/11/17 11:40 77 17 135/79 95 Room Air 04/11/17 11:30 78 17 130/77 98 Oxymask 10 04/11/17 11:20 36.9 88 20 124/71 100 Oxymask 10 04/11/17 06:51 36.8 70 18 116/69 (85) 98 Room Air Notes Mental Status: alert / awake / arousable, participated in evaluation Pt Amnestic to Procedure: Yes Nausea / Vomiting: adequately controlled Pain: adequately controlled Airway Patency, RR, SpO2: stable & adequate BP & HR: stable & adequate Hydration State: stable & adequate Anesthetic Complications: no major complications apparent
[2017-04-11 12:07] VITALS: BP 125/74; PULSE 72; TEMP 37.1; O2SAT 96
[2017-04-11 12:40] VITALS: BP 119/65; PULSE 82; O2SAT 96
[2017-04-11 13:10] VITALS: BP 124/69; PULSE 84; O2SAT 96
== END 2017-04-11 13:24 | disposition home or self-care (01) ==
LOC: C.ACU 06:22
DX: K11.23 Chronic sialoadenitis (principal); K11.5 Sialolithiasis; L40.9 Psoriasis, unspecified; Z80.8 Family history of malignant neoplasm of other organs or systems; Z79.899 Other long term (current) drug therapy

== ENCOUNTER → 2017-06-08 | Outpatient (CLI) | payer OTHER ==
[~2017-06-08] MED LIST changes: +ACET-1693 PO; -ACET325T96 PO; -CEFAZOLIN 2000MG IV PUSH 10 ML IV SCH; -LACTATED RINGER'S 1000ML 1,000 ML IV SCH; -NAPR1TAB9 PO
--- NOTE | 2017-06-08 14:54 | DIAGNOSTIC IMAGING REPORT ---
FUSION CT SINUSES W/O CLINICAL HISTORY: 56 years-old Female presenting with J32.9 Chronic sinusitis PATIENT IS STATUS POST ENDOSCOPIC SINUS S. TECHNIQUE: Multidetector CT of the sinuses was performed without the use of intravenous contrast. IV contrast: None. A dose lowering technique was used consistent with the principles of ALARA (as low as reasonably achievable). COMPARISON: CTA neck from 02/22/2017. CT DOSE (mGy.cm): The estimated cumulative dose is 727.98 mGycm. FINDINGS: Clinical Professor topogram: Unremarkable. Mucosal thickening with aerated secretions in the left maxillary sinus. Subtle sclerosis of the left maxillary sinus pinto. Postsurgical changes of right uncinectomy, right middle and superior turbinectomies, right ethmoidectomies, and left maxillary antrostomy. Minimal mucosal thickening in the right maxillary sinus. Extensive mucosal thickening in ethmoid air cells, left greater than right. Trace mucosal thickening in the right sphenoid sinus. Mastoid air cells and frontal sinuses clear. Mucosal thickening narrows and obstructs the nasal frontoethmoidal recesses. Ostiomeatal unit obstruction on the left though the maxillary antrostomy is patent. Surgically absent middle and superior right turbinates. Bony nasal septum minimally deviated to the left. No bony spurring or bridging. No dehiscence of the bony optic canals or carotid siphons. No significant anatomic variant. Orbits normal. Limited intracranial evaluation within normal limits. Upper cervical spine normal. IMPRESSION: 1. Evidence of acute on chronic sinusitis of the left maxillary sinus. 2. Extensive postsurgical changes as detailed above. 3. Mucosal thickening results in obstruction of the nasal frontoethmoidal recesses. 4. No significant anatomic variant. Electronically signed by: Ryan Bhatt M.D. 06/08/2017 2:53 PM Dictated Date/Time: 06/08/2017 2:48 PM
== END | disposition home or self-care (01) ==
LOC: C.CTS 14:28
DX: J01.00 Acute maxillary sinusitis, unspecified (principal); J32.0 Chronic maxillary sinusitis